=== PATIENT | female | born 1965 | race Caucasian/White ===

== ENCOUNTER 2019-10-25 22:40 | Emergency (ER) | payer BC, OTHER ==
[2019-10-25] MEDS ORDERED: Acetaminophen/HYDROcodone 325-5 MG Tab PO ONE (22:41)
[2019-10-25] MEDS ORDERED: Alum Hydrox/Mag Hydrox/Simeth 30 ML, Lidocaine 2% 15 ML PO ONE ×2 (22:56)
[2019-10-25] MEDS ORDERED: Ketorolac 60 MG/2 ML SDV IM ONE (23:14)
--- NOTE | 2019-10-25 23:14 | EDM.PDOC ---
ED HPI GENERAL MEDICAL PROBLEM - General Chief Complaint: General Stated Complaint: chest and abdominal pain Time Seen by Provider: 10/25/19 23:05 Source of Information: Reports: Patient History Limitations: Reports: No Limitations - History of Present Illness INITIAL COMMENTS - FREE TEXT/NARRATIVE: Has midepigastric pain that radiates to the chest and into the rght chest and wraps to the right flank area. Denies any history of kidney stones or gall bladder attacks. She does have history of upset stomach. She states that she has never had pain like this before and nothing near this bad. Does have difficulty finding position of comfort as she feels better standing and stretching out. No vomiting or diarrhea or fever. Had taco salad for supper tonight. No improvement with the GI cocktail. Onset: Today Onset Date: 10/25/19 Onset Time: 20:00 Location: Reports: Abdomen Quality: Reports: Stabbing Epigastric Pain Score (Numeric/FACES): 8 - Related Data Allergies Allergy/AdvReac Type Severity Reaction Status Date / Time No Known Allergies Allergy Verified 10/25/19 22:50 Home Meds: Home Meds Naproxen Sodium [Aleve] 220 mg PO Q4HR PRN 04/06/14 [History] Sertraline HCl [Zoloft] 75 mg PO DAILY 10/25/19 [History] Past Medical History HEENT History: Reports: Other (See Below) (cornea transplant) Social & Family History - Tobacco Use Smoking Status *Q: Never Smoker - Living Situation & Occupation Living situation: Reports: Occupation: Employed ED ROS GENERAL - Review of Systems Review Of Systems: See Below Constitutional: Denies: Fever, Chills Respiratory: Reports: No Symptoms Cardiovascular: Reports: No Symptoms GI/Abdominal: Reports: Abdominal Pain : Reports: No Symptoms Skin: Reports: No Symptoms Neurological: Reports: No Symptoms ED EXAM, GENERAL - Physical Exam Exam: See Below Exam Limited By: No Limitations General Appearance: Alert, WD/WN, Moderate Distress Ears: Normal External Exam, Normal Canal, Normal TMs Throat/Mouth: Normal Inspection, Normal Oropharynx Head: Atraumatic, Normocephalic Neck: Normal Inspection, Supple Respiratory/Chest: No Respiratory Distress, Lungs Clear, Normal Breath Sounds Cardiovascular: Normal Peripheral Pulses, Regular Rate, Rhythm, No Edema GI/Abdominal: Normal Bowel Sounds, Soft, Tender (tender to the midepigastric area with palpation. Pain worse in the RUQ when palpated and pain will radiate to the right shoulder areas. No chest pain.) Back Exam: Normal Inspection. No: CVA Tenderness (L), CVA Tenderness (R) Extremities: Normal Inspection, No Pedal Edema, Normal Capillary Refill Neurological: Alert, Oriented Psychiatric: Normal Affect Skin Exam: Warm, Dry, Intact Course - Vital Signs Last Recorded V/S: Last Vital Signs Temp 97.7 F 10/25/19 22:40 Pulse 60 10/25/19 22:40 Resp 16 10/25/19 22:40 BP 151/77 H 10/25/19 23:12 Pulse Ox 99 10/25/19 22:40 - Orders/Labs/Meds Orders: Active Orders 24 hr Category Date Time Status EKG Documentation Completion [RC] STAT Care 10/25/19 22:40 Active Labs: Laboratory Tests 10/25/19 10/25/19 10/25/19 Range/Units 22:57 22:57 22:57 WBC 12.7 H (5.0-10.0) 10^3/uL RBC 5.25 (4.00-5.50) 10^6/uL Hgb 15.1 (12.0-16.0) g/dL Hct 45.2 (37.0-47.0) % MCV 86.1 (82.0-94.0) fL MCH 28.8 (27.0-32.0) pg MCHC 33.4 (33.0-38.0) g/dL RDW Coeff of Tre 14.4 (11.0-15.0) % Plt Count 266 (150-400) 10^3/uL Neut % (Auto) 63.5 (35-85) % Lymph % (Auto) 27.9 (10-55) % [place] % (Auto) 6.9 (0-16) % Eos % (Auto) 1.5 (0-5) % Baso % (Auto) 0.2 (0-3) % Neut # (Auto) 8.05 H (1.80-7.00) 10^3/uL Lymph # (Auto) 3.53 (1.00-4.80) 10^3/uL [place] # (Auto) 0.88 H (0.00-0.80) 10^3/uL Eos # (Auto) 0.19 (0.00-0.45) 10^3/uL Baso # (Auto) 0.02 10^3/uL PT 9.7 (9.7-12.3) SEC INR 0.96 (0.92-1.18) APTT 21.6 L (23.2-32.3) SEC Sodium 142 (136-145) mEq/L Potassium 3.6 (3.5-5.0) mEq/L Chloride 104 (98-106) mEq/L Carbon Dioxide 27 (21-32) mmol/L BUN 15 (7-18) mg/dL Creatinine 0.9 (0.6-1.0) mg/dL Est Cr Clr Drug Dosing 71.25 mL/min Estimated GFR (MDRD) > 60 (>=60) mL/min Glucose 127 H D (75-99) mg/dL Calcium 9.8 (8.4-10.1) mg/dL Total Bilirubin 0.3 (0.0-1.0) mg/dL AST 14 L (15-37) U/L ALT 22 (12-78) U/L Alkaline Phosphatase 85 (46-116) U/L Lactate Dehydrogenase 174 (100-190) U/L Creatine Kinase 63 (21-215) U/L Troponin I < 0.017 (0.00-0.06) ng/mL Total Protein 7.5 (6.4-8.2) g/dL Albumin 3.6 (3.4-5.0) g/dL Amylase 56 (25-115) U/L Lipase 170 (73-393) U/L Urine Color (YELLOW) Urine Appearance (CLEAR) Urine pH (4.5-8.0) Ur Specific [place] (1.003-1.020) Urine Protein (NEGATIVE) mg/dL Urine Glucose (UA) (NEGATIVE) mg/dL Urine Ketones (NEGATIVE) mg/dL Urine Occult Blood (NEGATIVE) Urine Nitrite (NEGATIVE) Urine Bilirubin (NEGATIVE) Urine Urobilinogen (0.2-1.0) EU/dL Ur Leukocyte Esterase (NEGATIVE) Urine RBC (0-5) /HPF Urine WBC (0-5) /HPF Ur Squamous Epith Cells (NOT SEEN) /HPF 10/25/19 Range/Units 23:00 WBC (5.0-10.0) 10^3/uL RBC (4.00-5.50) 10^6/uL Hgb (12.0-16.0) g/dL Hct (37.0-47.0) % MCV (82.0-94.0) fL MCH (27.0-32.0) pg MCHC (33.0-38.0) g/dL RDW Coeff of Tre (11.0-15.0) % Plt Count (150-400) 10^3/uL Neut % (Auto) (35-85) % Lymph % (Auto) (10-55) % [place] % (Auto) (0-16) % Eos % (Auto) (0-5) % Baso % (Auto) (0-3) % Neut # (Auto) (1.80-7.00) 10^3/uL Lymph # (Auto) (1.00-4.80) 10^3/uL [place] # (Auto) (0.00-0.80) 10^3/uL Eos # (Auto) (0.00-0.45) 10^3/uL Baso # (Auto) 10^3/uL PT (9.7-12.3) SEC INR (0.92-1.18) APTT (23.2-32.3) SEC Sodium (136-145) mEq/L Potassium (3.5-5.0) mEq/L Chloride (98-106) mEq/L Carbon Dioxide (21-32) mmol/L BUN (7-18) mg/dL Creatinine (0.6-1.0) mg/dL Est Cr Clr Drug Dosing mL/min Estimated GFR (MDRD) (>=60) mL/min Glucose (75-99) mg/dL Calcium (8.4-10.1) mg/dL Total Bilirubin (0.0-1.0) mg/dL AST (15-37) U/L ALT (12-78) U/L Alkaline Phosphatase (46-116) U/L Lactate Dehydrogenase (100-190) U/L Creatine Kinase (21-215) U/L Troponin I (0.00-0.06) ng/mL Total Protein (6.4-8.2) g/dL Albumin (3.4-5.0) g/dL Amylase (25-115) U/L Lipase (73-393) U/L Urine Color Yellow (YELLOW) Urine Appearance Clear (CLEAR) Urine pH 5.0 (4.5-8.0) Ur Specific [place] 1.025 H (1.003-1.020) Urine Protein Negative (NEGATIVE) mg/dL Urine Glucose (UA) Negative (NEGATIVE) mg/dL Urine Ketones Negative (NEGATIVE) mg/dL Urine Occult Blood Negative (NEGATIVE) Urine Nitrite Negative (NEGATIVE) Urine Bilirubin Negative (NEGATIVE) Urine Urobilinogen 0.2 (0.2-1.0) EU/dL Ur Leukocyte Esterase Trace H (NEGATIVE) Urine RBC Not seen (0-5) /HPF Urine WBC 0-5 (0-5) /HPF Ur Squamous Epith Cells Few H (NOT SEEN) /HPF Meds: Medications Discontinued Medications Generic Name Dose Route Start Last Admin Trade Name Freq PRN Reason Stop Dose Admin Hydrocodone Bitart/Acetaminophen 2 packet 10/25/19 23:49 Take Home: Acetaminophen/Hydrocod, 2 Tab Pack PO 10/25/19 23:50 ONETIME ONE Al Hydroxide/Mg Hydroxide 30 0 ml 10/25/19 22:56 10/25/19 23:01 ml/ Lidocaine HCl 15 ml PO 10/25/19 22:57 45 ml ONETIME ONE Administration Fentanyl 50 mcg 10/25/19 23:37 10/25/19 23:43 Sublimaze IVPUSH 10/25/19 23:38 50 mcg ONETIME ONE Administration Ketorolac Tromethamine 60 mg 10/25/19 23:14 10/25/19 23:20 Toradol IM 10/25/19 23:15 60 mg ONETIME ONE Administration - Re-Assessments/Exams Free Text/Narrative Re-Assessment/Exam: 10/25/19 23:45 No improvement in the pain from the GI cocktail or the toradal. Will give IV Fentanyl to obtain relief. Discussed normal labs and EG with pt. will schedule for GB US as soon as able. Departure - Departure Time of Disposition: 00:01 Disposition: Home, Self-Care 01 Clinical Impression: RUQ abdominal pain - Discharge Information *PRESCRIPTION DRUG MONITORING PROGRAM REVIEWED*: Not Applicable *COPY OF PRESCRIPTION DRUG MONITORING REPORT IN PATIENT EMERY: Not Applicable Instructions: Abdominal Pain, Adult, [id number] Referrals: PCP,None [Primary Care Provider] - Forms: ED Department Discharge Additional Instructions: Do not drink or eat anything until talking to xray in the morning. They may be able to do your ultrasound in the morning. Or call [phone] if you aren't going to be by your phone. You will be notified when the results come back. Eat bland food. avoid greasy or spicy foods drink plenty of water. [place] 5/325 take 1 tablet every 4-6 hours as needed for pain. Recheck if pain changes or increases. Sepsis Event Note (ED) - Focused Exam Vital Signs: Vital Signs Temp Pulse Resp BP BP Pulse Ox 10/25/19 23:12 151/77 H 10/25/19 22:40 97.7 F 60 16 170/73 H 99 - Problem List & Annotations (1) RUQ abdominal pain SNOMED Code(s): 747864812 Code(s): R10.11 - RIGHT UPPER QUADRANT PAIN Status: Acute Priority: High Current Visit: Yes - Problem List Review Problem List Initiated/Reviewed/Updated: Yes - My Orders Last 24 Hours: My Active Orders 10/25/19 22:40 EKG Documentation Completion [RC] STAT - Assessment/Plan Last 24 Hours: My Active Orders 10/25/19 22:40 EKG Documentation Completion [RC] STAT
[2019-10-25 23:28] LABS: PTT,PARTIAL THROMBOPLSTIN TIME 21.6 SEC (23.2-32.3)
[2019-10-25 23:30] LABS: CHLORIDE,CL 104 mEq/L (98-106); SODIUM,NA 142 mEq/L (136-145)
[2019-10-25] MEDS ORDERED: fentaNYL 100 MCG/2 ML SDV IVPUSH ONE (23:37)
[2019-10-25] MEDS ORDERED: Take Home: Acetaminophen/HYDROcodone 325-5 MG, 2 Tab Pack PO ONE (23:49)
== END 2019-10-26 00:10 | disposition home or self-care (01) ==
LOC: CC.ED 22:40
DX: R10.11 Right upper quadrant pain (principal); Z79.899 Other long term (current) drug therapy
CPT/HCPCS: 36415; 80053; 81001; 82150; 82550; 83615; 83690; 84484; 85025; 85610; 85730; 93005; 96372; 96374; 99284; A9270; J1885; J3010

== ENCOUNTER → 2022-10-31 | Day surgery (SDC) | payer BC ==
[~2022-10-31] MED LIST: Flumazenil 0.1 MG/ML 10 ML MDV ONE; Lactated Ringers 1,000 ML IV SCH; Midazolam 1 MG/ML 2 ML SDV ONE; Propofol 200 MG/20 ML SDV ONE; fentaNYL 50 MCG/ML SDV ONE
== END ==
LOC: CC.SDS 08:55
PROVIDERS: ATTEND Family Medicine
DX: Z12.11 Encounter for screening for malignant neoplasm of colon (principal); D12.5 Benign neoplasm of sigmoid colon; F41.9 Anxiety disorder, unspecified; F32.A Depression, unspecified; Z79.899 Other long term (current) drug therapy; Z87.891 Personal history of nicotine dependence
CPT/HCPCS: 00811; J2250; J2704; J3010; J3490; J7120